=== PATIENT | female | born 1980 ===

== ENCOUNTER 2018-11-16 12:35 | Emergency (ER) | payer MEDICAID ==
[2018-11-16 13:19] VITALS: BMI 21.8
[2018-11-16 13:21] VITALS: RESP 18; O2SAT 100
--- NOTE | 2018-11-16 14:08 | ED PDOC ---
Arrival/HPI - General Chief Complaint: GI Problem Time Seen by Provider: 11/16/18 13:59 Historian: Patient - History of Present Illness Narrative History of Present Illness (Text): 11/16/18 14:04 38 year old female, with no significant past medical history presents to the emergency department complaining of nausea and vomiting for the past day. Patient also reports associated headache, sore throat, and body aches. She notes her period started yesterday and notes positive sick contact at home. She denies hematemesis, fevers, chills, dizziness, chest pain, shortness of breath, dyspnea on exertion, cough, diarrhea, back pain, neck pain, or any other complaint. Time/Duration: 24 hours Symptom Onset: Gradual Symptom Course: Unchanged Activities at Onset: Light Context: Home Past Medical History - Provider Review Nursing Documentation Reviewed: Yes - Infectious Disease Hx of Infectious Diseases: None - Reproductive Currently : No - Psychiatric Hx Substance Use: No - Surgical History Hx Section: Yes (x1) Family/Social History - Physician Review Nursing Documentation Reviewed: Yes Family/Social History: No Known Family HX Smoking Status: Never Smoked Hx Alcohol Use: Yes Frequency of alcohol use: Socially Hx Substance Use: No Allergies/Home Meds Allergies/Adverse Reactions: Allergies shrimp Allergy (Verified 11/16/18 13:19) SWELLING Review of Systems - Physician Review All systems were reviewed & negative as marked: Yes - Review of Systems Constitutional: absent: Fevers Cardiovascular: absent: Chest Pain Physical Exam - Physical Exam Narrative Physical Exam (Text): 11/16/18 14:10 Constitutional: No acute distress. Head: Normocephalic. Atraumatic. Eyes: PERRL. ENT: Moist mucous membranes. Neck: Supple. Cardiovascular: Regular rate. Chest: No tenderness. Respiratory: Clear to auscultation bilaterally. GI: Soft. Nontender. Nondistended. Back: No CVA tenderness. Musculoskeletal: No tenderness or swelling of extremities. Skin: No rash. Neurologic: Alert, no focal deficit. Vital Signs Reviewed: Yes Vital Signs Temp Pulse Resp BP Pulse Ox 11/16/18 13:20 97.2 F L 94 H 18 116/76 100 Temperature: Afebrile Blood Pressure: Normal Pulse: Tachycardic Respiratory Rate: Normal Appearance: Positive for: Well-Appearing, Non-Toxic, Comfortable Pain Distress: None Mental Status: Positive for: Alert and Oriented X 3 Medical Decision Making ED Course and Treatment: 11/16/18 14:08 Impression: 38 year old female who presents to the emergency department complaining nausea and vomiting. Plan: -- Tamiflu -- Toradol -- Zofran -- POC urine test -- Reassess and disposition Prior Visits: Notes and results from previous visits were reviewed. Appears well, normal vital signs. F/u PMD, return to ED for worsening pain, fever, vomiting, dyspnea, or any other problem. - Scribe Statement The provider has reviewed the documentation as recorded by the Scribe Mariza Anderson Provider Scribe Attestation: All medical record entries made by the Scribe were at my direction and personally dictated by me. I have reviewed the chart and agree that the record accurately reflects my personal performance of the history, physical exam, medical decision making, and the department course for this patient. I have also personally directed, reviewed, and agree with the discharge instructions and disposition. Disposition/Present on Arrival - Present on Arrival Any Indicators Present on Arrival: No History of DVT/PE: No History of Uncontrolled Diabetes: No Urinary Catheter: No History of Decub. Ulcer: No History Surgical Site Infection Following: None - Disposition Have Diagnosis and Disposition been Completed?: Yes Diagnosis: Influenza-like illness Disposition: HOME/ ROUTINE Disposition Time: 14:08 Patient Plan: Discharge Patient Problems: Current Active Problems Problem Status Onset Influenza-like illness Acute Condition: STABLE Discharge Instructions (ExitCare): Flu Prescriptions: Acetaminophen [Tylenol 325mg tab] 2 tab PO Q4H #30 tab Ibuprofen [Motrin] 1 tab PO Q6 #30 tab Ondansetron ODT [Zofran ODT] 4 mg PO Q8 #12 odt Oseltamivir Phosphate [Tamiflu] 1 cap PO BID #9 capsule Forms: [employer] ([place]), WORK NOTE
[2018-11-16 15:21] VITALS: BP 109/47; PULSE 96; TEMP 98.5
== END 2018-11-16 15:15 | disposition home or self-care (01) ==
LOC: ED 12:35
DX: J11.1 Influenza due to unidentified influenza virus with other respiratory manifestations (principal)
CPT/HCPCS: 81025; 96372; 99284; J1885